=== PATIENT | female | born 2000 | race Hispanic/Latino ===

== ENCOUNTER 2021-07-17 14:26 | Day surgery (SDC) | payer SELFPAY ==
[2021-07-17] MEDS ORDERED: hydrALAZINE 20 MG/ML VIAL SLOW IVP PRN (15:41)
[2021-07-17 15:42] LABS: Fetal Membranes Rupture No Membranes Rupture (No Rupture)
== END 2021-07-17 16:44 | disposition home health service (06) ==
LOC: CSHLD/OP 14:26
PROVIDERS: ATTEND Student in an Organized Health Care Education/Training Program
DX: O99.891 Other specified diseases and conditions complicating pregnancy (principal); N89.8 Other specified noninflammatory disorders of vagina; Z3A.30 30 weeks gestation of pregnancy; Z87.891 Personal history of nicotine dependence
CPT/HCPCS: 84112; 99284

== ENCOUNTER 2021-08-24 09:24 | Day surgery (SDC) | payer SELFPAY ==
[2021-08-24 09:48] VITALS: BMI 29.0
[2021-08-24] MEDS ORDERED: hydrALAZINE 20 MG/ML VIAL SLOW IVP PRN (10:31)
== END 2021-08-24 12:29 | disposition home or self-care (01) ==
LOC: CSHLD/OP 09:24
PROVIDERS: ATTEND Obstetrics & Gynecology
DX: O47.03 False labor before 37 completed weeks of gestation, third trimester (principal); O99.891 Other specified diseases and conditions complicating pregnancy; R10.2 Pelvic and perineal pain; Z3A.36 36 weeks gestation of pregnancy; Z87.891 Personal history of nicotine dependence
CPT/HCPCS: 99283

== ENCOUNTER 2021-08-28 20:09 | Day surgery (SDC) | payer MEDICAID, SELFPAY ==
[2021-08-28] MEDS ORDERED: hydrALAZINE 20 MG/ML VIAL SLOW IVP PRN (21:04)
[2021-08-28 21:23] LABS: Fetal Membranes Rupture No Membranes Rupture (No Rupture)
== END 2021-08-28 22:40 | disposition home or self-care (01) ==
LOC: CSHLD/OP 20:09
PROVIDERS: ATTEND Obstetrics & Gynecology
DX: O99.891 Other specified diseases and conditions complicating pregnancy (principal); N89.8 Other specified noninflammatory disorders of vagina; O09.33 Supervision of pregnancy with insufficient antenatal care, third trimester; O98.813 Other maternal infectious and parasitic diseases complicating pregnancy, third trimester; B37.3 Candidiasis of vulva and vagina; Z3A.36 36 weeks gestation of pregnancy
CPT/HCPCS: 84112; 87480; 87510; 87660; 99285

== ENCOUNTER 2021-09-13 19:53 | Inpatient (IN) | payer MEDICAID ==
[~2021-09-13 19:53] MED LIST: Bupivacaine/Epinephrine 0.25% 30 ML VIAL ONE
[2021-09-13] MEDS ORDERED: hydrALAZINE 20 MG/ML VIAL SLOW IVP PRN ×2 (20:33→22:25)
[2021-09-13] MEDS ORDERED: Ondansetron PF 4 MG/2 ML Vial IVP PRN (22:25)
[2021-09-13] MEDS ORDERED: Lidocaine 1% (PF) 30 ML VIAL SC PRN (22:25)
[2021-09-13] MEDS ORDERED: Butorphanol Tartrate 1 MG/ML VIAL SLOW IVP PRN (22:25)
[2021-09-13] MEDS ORDERED: Diphenoxylate HCl/Atropine Tablet PO PRN (22:25)
[2021-09-13] MEDS ORDERED: Carboprost 250 MCG/ML AMP IM PRN (22:25)
[2021-09-13] MEDS ORDERED: Methylergonovine 0.2 MG/ML VIAL IM PRN (22:25)
[2021-09-13] MEDS ORDERED: Ibuprofen 800 MG TAB PO PRN (22:25)
[2021-09-13] MEDS ORDERED: Promethazine HCl 25 MG/ML VIAL IM PRN (22:25)
[2021-09-13] MEDS ORDERED: Acetaminophen 500 MG TAB PO PRN (22:25)
[2021-09-13] MEDS ORDERED: Misoprostol 200 MCG TAB PR PRN (22:25)
[2021-09-13] MEDS ORDERED: Lactated Ringer's 1,000 ML IV SCH (23:00)
[2021-09-13] MEDS ORDERED: Misoprostol 100 MCG TAB VAG SCH (23:00)
[2021-09-13 23:08] VITALS: BMI 28.6
[2021-09-13 23:08] LABS: Hemoglobin 12.9 g/dL (12.0-15.5); Mean Corpuscular HGB CONC 34.1 g/dL (32.0-36.0); Mean Corpuscular Hemoglobin 30.3 pg (27.0-33.0); Mean Corpuscular Volume 88.7 fl (81.6-98.3); Mean Platelet Volume 10.5 fl (7.4-10.4); Platelet Count 237 10x3/uL (150-450); RBC Distribution Width 13.6 % (11.5-14.5); Red Blood Cell (RBC) Count 4.26 10x6/uL (3.90-5.03); White Blood Cell (WBC) Count 10.6 10x3/uL (3.5-10.5)
[2021-09-13 23:34] LABS: Hep B Surf Ag Non-Reactive S/CO (NonReactive); Syphilis Antibody Nonreactive (Nonreactive); Syphilis Antibody Index 0.02 S/CO (<1.00 Non-Reactive)
[2021-09-13 23:37] LABS: SARS-CoV-2 NAA Rapid Test Not Detected (NotDetected)
[2021-09-13 23:42] LABS: HBSAg Index 0.17 S/CO (0-0.99)
[2021-09-14] MEDS ORDERED: Fentanyl 2 mcg/Bup 0.1% Cadd 100 ML ONE (03:17)
[2021-09-14] MEDS ORDERED: diphenhydrAMINE 50 MG/ML VIAL IVP PRN (04:31)
[2021-09-14] MEDS ORDERED: Ondansetron PF 4 MG/2 ML Vial IVP PRN (04:31)
[2021-09-14] MEDS ORDERED: ePHEDrine Sulfate 50 MG/10 ML VIAL SLOW IVP PRN (04:31)
[2021-09-14] MEDS ORDERED: Acetaminophen 325 MG TAB PO PRN (04:31)
[2021-09-14] MEDS ORDERED: Promethazine HCl 25 MG/ML VIAL IM PRN (04:31)
[2021-09-14] MEDS ORDERED: Naloxone HCl 0.4 mg/ml Vial IVP PRN ×2 (04:31)
[2021-09-14] MEDS ORDERED: Moisturizing Cream (Eucerin) 113 GM JAR TOP PRN (04:31)
[2021-09-14] MEDS ORDERED: Lactated Ringer's 500 ML IV PRN (04:31)
[2021-09-14] MEDS ORDERED: Fentanyl 2 mcg/Bupivacaine 0.1% Cassette 100 ML EPIDURAL SCH (04:45)
[2021-09-14] MEDS ORDERED: Communication Order-Pharmacy FS SCH (04:45)
[2021-09-14] MEDS: NS w/ Oxytocin 30 units 500 ML IV SCH ×2 (11:08→11:52)
[2021-09-14] MEDS ORDERED: Boostrix 0.5 ML (Tdap) VIAL IM ONE (14:27)
[2021-09-14] MEDS ORDERED: Misoprostol 200 MCG TAB VAG PRN (14:27)
[2021-09-14] MEDS ORDERED: Milk Of Magnesia 30 ML UDCUP PO PRN (14:27)
[2021-09-14] MEDS ORDERED: Lanolin Ointment 7 GM TUBE TOP PRN (14:27)
[2021-09-14] MEDS ORDERED: Varicella virus, LIVE 0.5 ML VIAL SC ONE (14:27)
[2021-09-14] MEDS ORDERED: Bisacodyl 10 MG SUPP PR PRN (14:27)
[2021-09-14] MEDS ORDERED: Benzocaine-Menthol 82.5 ML CAN TOP PRN (14:27)
[2021-09-14] MEDS ORDERED: hydrALAZINE 20 MG/ML VIAL SLOW IVP PRN (14:27)
[2021-09-14] MEDS: Ibuprofen 800 MG TAB PO SCH ×2 (15:13→21:31)
[2021-09-14] MEDS: Ferrous Sulfate 325 MG TAB PO SCH (17:04)
[2021-09-14] MEDS: Docusate 100 MG CAP PO SCH (21:31)
[2021-09-15] MEDS: Ibuprofen 800 MG TAB PO SCH ×3 (05:16→21:18)
[2021-09-15] MEDS: Docusate 100 MG CAP PO SCH ×2 (08:26→21:18)
[2021-09-15] MEDS: Prenatal Vitamin 1 TAB PO SCH (08:26)
[2021-09-15] MEDS: Ferrous Sulfate 325 MG TAB PO SCH ×2 (08:27→15:39)
[2021-09-15] MEDS: Measles/Mumps/Rubella 10 MCG/0.5 ML VIAL SC ONE (08:29)
[2021-09-16] MEDS: Ibuprofen 800 MG TAB PO SCH ×2 (05:22→13:51)
[2021-09-16 07:37] VITALS: BP 111/59; TEMP 98.8
[2021-09-16] MEDS: Ferrous Sulfate 325 MG TAB PO SCH (08:38)
[2021-09-16] MEDS: Measles/Mumps/Rubella 10 MCG/0.5 ML VIAL SC ONE (08:42)
[2021-09-16] MEDS: Docusate 100 MG CAP PO SCH (08:43)
[2021-09-16] MEDS: Prenatal Vitamin 1 TAB PO SCH (08:43)
== END 2021-09-16 14:35 | disposition home or self-care (01) | DRG 768 ==
LOC: CSHLD/OP 19:53 → CSHLD 23:02 → CSHPP 09-14 14:25
PROVIDERS: ADMIT Obstetrics & Gynecology; ATTEND Obstetrics & Gynecology
PROC: 10E0XZZ Delivery of Products of Conception, External Approach (ICD-10-PCS; principal; 2021-09-14)
PROC: 0DQR0ZZ Repair Anal Sphincter, Open Approach (ICD-10-PCS; 2021-09-14)
PROC: 10907ZC Drainage of Amniotic Fluid, Therapeutic from Products of Conception, Via Natural or Artificial Opening (ICD-10-PCS; 2021-09-14)
DX: O69.81X0 Labor and delivery complicated by cord around neck, without compression, not applicable or unspecified (principal); Z37.0 Single live birth; O70.20 Third degree perineal laceration during delivery, unspecified; Z3A.39 39 weeks gestation of pregnancy; Z20.822 Contact with and (suspected) exposure to COVID-19
CPT/HCPCS: 36415; 85027; 86780; 86850; 86900; 86901; 87340; 90707; J0595; J2590; U0002